=== PATIENT | female | born 1940 | race Caucasian/White ===

== ENCOUNTER 2019-01-31 21:52 | Emergency (ER) | payer OTHER ==
[2019-01-31 21:57] VITALS: BMI 29.0
--- NOTE | 2019-01-31 22:55 | PDOC ---
History of Present Illness - General Chief Complaint: Pain Stated Complaint: ABD PAIN Time Seen by Provider: 01/31/19 22:54 - History of Present Illness Initial Comments: 01/31/19 22:54 Ms. Martin is an 78 yo female w/ pmh of HTN, HLD, Parkinson's, and prior diverticulitis who presents for evaluation of Left lower abdominal pain earlier this evening. Patient reports pain was severe and radiated accross her left lower abdomen. Denies any other symptoms however pain was severe enough to warrant presentation to ER. Patient's last BM was today and normal. The patient denies chest pain, shortness of breath, headache and dizziness. Denies fever, chills, nausea, vomit, diarrhea and constipation. Denies dysuria, frequency, urgency and hematuria. Past History - Past Medical History Allergies/Adverse Reactions: Allergies Allergy/AdvReac Type Severity Reaction Status Date / Time codeine Allergy Severe Verified 07/12/14 15:36 levofloxacin [From Levaquin] Allergy Severe Verified 07/12/14 15:36 Home Medications: Ambulatory Orders Aspirin [ASA -] 81 mg PO DAILY 07/12/14 Hydrochlorothiazide [Hctz -] 1 tab PO DAILY 07/12/14 Levothyroxine [Synthroid -] 112 mcg PO DAILY 07/12/14 Nebivolol HCl [Bystolic] 10 mg PO DAILY 07/12/14 Olmesartan Medoxomil [Benicar -] 20 mg PO DAILY 07/12/14 Cephalexin [Keflex] 500 mg PO BID #14 capsule 02/01/19 Cardiac Disorders: Yes (AF - on cardiac rehab in past) COPD: No HTN: Yes Thyroid Disease: Yes (HYPO) - Surgical History Cholecystectomy: Yes (1967) - Suicide/Smoking/Psychosocial Hx Smoking History: Former smoker Have you smoked in the past 12 months: No If you are a former smoker, when did you quit?: 40 YRS AGO Information on smoking cessation initiated: No Review of Systems - Review of Systems Comments:: 01/31/19 22:56 GENERAL/CONSTITUTIONAL: No fever or chills. No weakness. HEAD, EYES, EARS, NOSE AND THROAT: No change in vision. No ear pain or discharge. No sore throat. CARDIOVASCULAR: No chest pain or shortness of breath RESPIRATORY: No cough, wheezing, or hemoptysis. GASTROINTESTINAL: +LLQ abdominal pain as described. No nausea, vomiting, diarrhea or constipation. GENITOURINARY: No dysuria, frequency, or change in urination. MUSCULOSKELETAL: No joint or muscle swelling or pain. No neck or back pain. SKIN: No rash NEUROLOGIC: No headache, vertigo, loss of consciousness, or change in strength/ sensation. ENDOCRINE: No increased thirst. No abnormal weight change HEMATOLOGIC/LYMPHATIC: No anemia, easy bleeding, or history of blood clots. ALLERGIC/IMMUNOLOGIC: No hives or skin allergy. *Physical Exam - Vital Signs Last Vital Signs Temp Pulse Resp BP Pulse Ox 98.2 F 80 19 165/76 98 01/31/19 21:54 01/31/19 21:54 01/31/19 21:54 01/31/19 21:54 01/31/19 21:54 - Physical Exam Comments: 01/31/19 22:56 GENERAL: Awake, alert, and fully oriented, in no acute distress HEAD: No signs of trauma, normocephalic, atraumatic EYES: PERRLA, EOMI, sclera anicteric, conjunctiva clear ENT: Auricles normal inspection, hearing grossly normal, nares patent, oropharynx clear without exudates. Moist mucosa NECK: Normal ROM, supple, no lymphadenopathy, JVD, or masses LUNGS: No distress, speaks full sentences, clear to auscultation bilaterally HEART: Regular rate and rhythm, normal S1 and S2, no murmurs, rubs or gallops, peripheral pulses normal and equal bilaterally. ABDOMEN: Soft, nontender, normoactive bowel sounds. No guarding, no rebound. No masses EXTREMITIES: Normal inspection, Normal range of motion, no edema. No clubbing or cyanosis. NEUROLOGICAL: Cranial nerves II through XII grossly intact. Normal speech, normal gait, no focal sensorimotor deficits SKIN: Warm, Dry, normal turgor, no rashes or lesions noted. ED Treatment Course - LABORATORY CBC & Chemistry Diagram: 01/31/19 23:20 01/31/19 23:20 Medical Decision Making - Medical Decision Making 01/31/19 23:07 Ms. Martin is an 78 yo female w/ pmh as described who presents for evaluation of LLQ abdominal pain (now resolved). Given patient's age and pmh, will evaluate patient w/ labs as below as well as CT Abd/Pelvis and given symptomatic meds of tylenol/pepcid/fluids. Further patient workup pending. 02/01/19 01:08 Patient UA grossly positive for UTI as below. Patient ordered for IV rocephin. Labs otherwise grossly WNL. Patient currently receiving CT scan. 02/01/19 02:[address] significant only for diverticulosis. Patient will be discharged with outpatient ABX for follow-up. No concern for acute process at this time. Laboratory Results - last 24 hr 01/31/19 01/31/19 01/31/19 23:20 23:20 23:20 WBC 6.3 RBC 4.11 Hgb 12.2 Hct 37.4 MCV 91.0 MCH 29.7 MCHC 32.6 RDW 13.6 Plt Count 189 MPV 9.6 Absolute Neuts (auto) 4.2 Neutrophils % 66.0 Lymphocytes % 22.6 D Monocytes % 8.3 Eosinophils % 2.0 Basophils % 1.1 Nucleated RBC % 0 PT with INR 12.00 INR 1.02 PTT (Actin FS) 33.4 Sodium 141 Potassium 4.7 Chloride 107 Carbon Dioxide 27 Anion Gap 7 L BUN 22.7 H Creatinine 1.1 Est GFR (CKD-EPI)AfAm 54.91 Est GFR (CKD-EPI)NonAf 47.38 Random Glucose 95 Calcium 8.5 Total Bilirubin 0.9 AST 26 ALT 19 Alkaline Phosphatase 57 Total Protein 7.4 Albumin 3.4 Urine Color Urine Appearance Urine pH Ur Specific [place] Urine Protein Urine Glucose (UA) Urine Ketones Urine Blood Urine Nitrite Urine Bilirubin Urine Urobilinogen Ur Leukocyte Esterase Urine WBC (Auto) Urine RBC (Auto) Urine Casts (Auto) U Epithel Cells (Auto) Urine Bacteria (Auto) 02/01/19 00:20 WBC RBC Hgb Hct MCV MCH MCHC RDW Plt Count MPV Absolute Neuts (auto) Neutrophils % Lymphocytes % Monocytes % Eosinophils % Basophils % Nucleated RBC % PT with INR INR PTT (Actin FS) Sodium Potassium Chloride Carbon Dioxide Anion Gap BUN Creatinine Est GFR (CKD-EPI)AfAm Est GFR (CKD-EPI)NonAf Random Glucose Calcium Total Bilirubin AST ALT Alkaline Phosphatase Total Protein Albumin Urine Color Yellow Urine Appearance Cloudy Urine pH 5.0 Ur Specific [place] 1.018 Urine Protein Negative Urine Glucose (UA) Negative Urine Ketones Trace H Urine Blood Trace Urine Nitrite Positive H Urine Bilirubin Negative Urine Urobilinogen 1.0 Ur Leukocyte Esterase 3+ H Urine WBC (Auto) 374 Urine RBC (Auto) 5 Urine Casts (Auto) 3 U Epithel Cells (Auto) 3.5 Urine Bacteria (Auto) 6699.1 *DC/Admit/Observation/Transfer Diagnosis at time of Disposition: UTI (urinary tract infection) Qualifiers: Urinary tract infection type: site unspecified Hematuria presence: without hematuria Qualified Code(s): N39.0 - Urinary tract infection, site not specified - Discharge Dispostion Disposition: HOME - Prescriptions Prescriptions: Cephalexin [Keflex] 500 mg PO BID #14 capsule - Referrals Referrals: Jaquelin Leonardo [Primary Care Provider] - - Patient Instructions Printed Discharge Instructions: DI for Urinary Tract Infection (UTI) Additional Instructions: Cece was evaluated today in the ER for her pain. We performed laboratory testing as well as CT abdomen/pelvis which was negative. Her urine testing was positive for a UTI. We gave her IV ABX as well as sent a prescription to your pharmacy. Please take all medications as proscribed. Follow-up with primary care provider later this week for further evaluation. Return to ER if any further pain, fever, chills, or other concerning symptoms. - Post Discharge Activity
[2019-01-31] MEDS ORDERED: ACETAMINOPHEN 1000 MG/100 ML VIAL (NON FORMULARY) IVPB ONE (23:04)
[2019-01-31] MEDS ORDERED: FAMOTIDINE 20 MG/50 ML IVPB 20 MG/50 ML MG IVPB ONE (23:04)
[2019-01-31] MEDS ORDERED: SODIUM CHLORIDE 1,000 ML IV STA (23:04)
[2019-01-31 23:28] LABS: BASO % 1.1 % (0-2.0); HEMATOCRIT 37.4 % (32.4-45.2); HEMOGLOBIN 12.2 GM/dL (10.7-15.3); LYMPH % 22.6 % (8-40); MCH 29.7 pg (25.7-33.7); MCHC 32.6 g/dl (32.0-36.0); MEAN PLT VOLUME 9.6 fl (7.5-11.1); MONO % 8.3 % (3.8-10.2); PLATELET COUNT 189 K/MM3 (134-434); RBC 4.11 M/mm3 (3.60-5.2); RDW 13.6 % (11.6-15.6); WHITE BLOOD COUNT 6.3 K/mm3 (4.0-10.0)
[2019-01-31 23:43] LABS: INR 1.02 (0.83-1.09)
[2019-01-31 23:45] LABS: ACTIVATED PTT 33.4 SECONDS (25.2-36.5)
--- NOTE | 2019-01-31 23:58 | PDOC ---
Attending Attestation - Resident Resident Name: Gerard Barnes - ED Attending Attestation I have performed the following: I have examined & evaluated the patient, The case was reviewed & discussed with the resident, I agree w/resident's findings & plan, Exceptions are as noted - HPI HPI: 01/31/19 23:54 78 year old female c/ hx of diverticulosis, parkinson's disease p/w LLQ pain since earlier today. Stated she developed a "strong" type of pain in LLQ. Reported that the pain was constant and worse during the day. No fevers, nausea, vomiting, diarrhea, dysuria. Never had diverticulitis before. Pt states pain worsened, so came into the ER. - Physicial Exam PE: 01/31/19 23:59 GENERAL: Awake, alert, and fully oriented, in no acute distress HEAD: No signs of trauma EYES: EOMI, sclera anicteric, conjunctiva clear ENT: Auricles normal inspection, hearing grossly normal, nares patent, Moist mucosa NECK: Normal ROM, supple ABDOMEN: Soft, TTP LLQ. No guarding, no rebound. No masses EXTREMITIES: Normal range of motion, no edema. No clubbing or cyanosis. No cords, erythema, or tenderness NEUROLOGICAL: Cranial nerves II through XII grossly intact. Normal speech SKIN: Warm, Dry, normal turgor, no rashes or lesions noted. - Medical Decision Making 02/01/19 00:01 Vital Signs Temp Pulse Resp BP Pulse Ox 98.2 F 80 19 165/76 98 01/31/19 21:54 01/31/19 21:54 01/31/19 21:54 01/31/19 21:54 01/31/19 21:54 LLQ pain. R/o diverticulitis. Differential includes cystitis, colitis, gastroenteritis. Labs, UA/UC, CT abdomen and pelvis and reassess. 02/01/19 01:06 CBC, BMP 01/31/19 23:20 01/31/19 23:20 CMP Sodium 141 mmol/L (136-145) 01/31/19 23:20 Potassium 4.7 mmol/L (3.5-5.1) 01/31/19 23:20 Chloride 107 mmol/L (98-107) 01/31/19 23:20 Carbon Dioxide 27 mmol/L (21-32) 01/31/19 23:20 Anion Gap 7 MMOL/L (8-16) L 01/31/19 23:20 BUN 22.7 mg/dL (7-18) H 01/31/19 23:20 Creatinine 1.1 mg/dL (0.55-1.3) 01/31/19 23:20 Est GFR (CKD-EPI)AfAm 54.91 01/31/19 23:20 Est GFR (CKD-EPI)NonAf 47.38 01/31/19 23:20 Random Glucose 95 mg/dL (74-106) 01/31/19 23:20 Calcium 8.5 mg/dL (8.5-10.1) 01/31/19 23:20 Total Bilirubin 0.9 mg/dL (0.2-1) 01/31/19 23:20 AST 26 U/L (15-37) 01/31/19 23:20 ALT 19 U/L (13-61) 01/31/19 23:20 Alkaline Phosphatase 57 U/L (45-117) 01/31/19 23:20 Total Protein 7.4 g/dl (6.4-8.2) 01/31/19 23:20 Albumin 3.4 g/dl (3.4-5.0) 01/31/19 23:20 Urine Test Results Urine Color Yellow 02/01/19 00:20 Urine Appearance Cloudy 02/01/19 00:20 Urine pH 5.0 (5.0-8.0) 02/01/19 00:20 Ur Specific [place] 1.018 (1.010-1.035) 02/01/19 00:20 Urine Protein Negative (NEGATIVE) 02/01/19 00:20 Urine Glucose (UA) Negative (NEGATIVE) 02/01/19 00:20 Urine Ketones Trace (NEGATIVE) H 02/01/19 00:20 Urine Blood Trace (NEGATIVE) 02/01/19 00:20 Urine Nitrite Positive (NEGATIVE) H 02/01/19 00:20 Urine Bilirubin Negative (NEGATIVE) 02/01/19 00:20 Ur Leukocyte Esterase 3+ (NEGATIVE) H 02/01/19 00:20 Pt's UA with nitrates and leukocyte esterase. Microbiology reviewed. Ceftriaxone ordered. If CT scan is negative for acute abdominal pathology, can d/c with cephalexin BID x 7 days for UTI.
[2019-01-31 23:59] LABS: ALBUMIN 3.4 g/dl (3.4-5.0); BILIRUBIN,TOTAL 0.9 mg/dL (0.2-1); BLOOD UREA NITROGEN 22.7 mg/dL (7-18); CALCIUM 8.5 mg/dL (8.5-10.1); CREATININE 1.1 mg/dL (0.55-1.3); TOT PROT 7.4 g/dl (6.4-8.2)
[2019-02-01] LABS: POTASSIUM 4.7 mmol/L (3.5-5.1)
[2019-02-01] MEDS ORDERED: ACETAMINOPHEN INJECTION 100 ML IVPB ONE (00:10)
[2019-02-01] MEDS ORDERED: FAMOTIDINE 20 MG/50 ML IVPB 20 MG/50 ML MG IVPB ONE (00:11)
[2019-02-01 00:53] LABS: EPI CELLS 3.5 /HPF (0-5/HPF); HYALINE CASTS 3 /lpf (0-8); URINE APPEARANCE CLOUDY; URINE BACTERIA 6699.1 /hpf (NEGATIVE); URINE BILIRUBIN NEGATIVE (NEGATIVE); URINE COLOR YELLOW; URINE GLUCOSE (UA) NEGATIVE (NEGATIVE); URINE KETONE TRACE (NEGATIVE); URINE LEUK ESTERASE 3+ (NEGATIVE); URINE NITRITE POSITIVE (NEGATIVE); URINE PROTEIN NEGATIVE (NEGATIVE); URINE RBC 5 /hpf (0-4); URINE WBC 374 /hpf (0-5)
[2019-02-01] MEDS ORDERED: CEFTRIAXONE 1,000 MG in DEXTROSE 5%-WATER - 50 ML IVPB ONE (01:05)
[2019-02-01] MEDS ORDERED: CEFTRIAXONE 1 GM/50 ML BAG ONE (01:52)
[2019-02-01 03:00] VITALS: BP 155/53; PULSE 67; TEMP 97.7
== END 2019-02-01 03:42 | disposition home or self-care (01) ==
LOC: JER 21:52
PROC: 3E033GC Introduction of Other Therapeutic Substance into Peripheral Vein, Percutaneous Approach (ICD-10-PCS; principal; 2019-01-31)
PROC: 3E033NZ Introduction of Analgesics, Hypnotics, Sedatives into Peripheral Vein, Percutaneous Approach (ICD-10-PCS; 2019-01-31)
DX: N39.0 Urinary tract infection, site not specified (principal); I10 Essential (primary) hypertension; E03.9 Hypothyroidism, unspecified; G20 Parkinson's disease
CPT/HCPCS: 36415; 74177-TC; 80053; 81003; 85025; 85610; 85730; 87086; 87186; 96365; 96375; 99282-25; J0131; J7030